=== PATIENT | female | born 1990 | race Caucasian/White ===

== ENCOUNTER 2019-01-26 09:41 | Emergency (ER) | payer BC ==
[~2019-01-26] VITALS: Ht 165.1 cm; Wt 77.6 kg
[2019-01-26 09:41] VITALS: BP 133/83
[2019-01-26] MEDS ORDERED: ADDE30CA3 PO (09:48)
[2019-01-26] MEDS ORDERED: WELLTAB40 PO (09:48)
[2019-01-26] MEDS ORDERED: AMPH1TAB2 PO (10:35)
== END 2019-01-26 10:38 | disposition home or self-care (01) ==
LOC: M ED 09:41
DX: Z76.0 Encounter for issue of repeat prescription (principal); F90.9 Attention-deficit hyperactivity disorder, unspecified type; Z79.899 Other long term (current) drug therapy; F17.210 Nicotine dependence, cigarettes, uncomplicated

== ENCOUNTER 2021-11-26 12:19 | Emergency (ER) | payer BC, SELFPAY ==
[~2021-11-26] VITALS: Ht 165.1 cm; Wt 79.2 kg
[~2021-11-26 12:19] MED LIST: ADDE30CA3 PO; AMPH1TAB2 PO; WELLTAB40 PO
[2021-11-26] MEDS ORDERED: NAPR-837 PO (14:18)
[2021-11-26 14:28] VITALS: BP 114/77
== END 2021-11-26 14:29 | disposition home or self-care (01) ==
LOC: M ED 12:19
DX: G56.31 Lesion of radial nerve, right upper limb (principal); F90.9 Attention-deficit hyperactivity disorder, unspecified type; Z79.899 Other long term (current) drug therapy; F17.200 Nicotine dependence, unspecified, uncomplicated

== ENCOUNTER → 2021-12-04 | Outpatient (CLI) | payer SELFPAY ==
[~2021-12-04] MED LIST changes: +NAPR-837 PO
== END ==
LOC: M SOG 15:11
PROVIDERS: ATTEND Orthopaedic Surgery
DX: G56.31 Lesion of radial nerve, right upper limb (principal)

== ENCOUNTER 2022-05-26 03:56 | Emergency (ER) | payer MEDICAID, OTHER, SELFPAY ==
[~2022-05-26] VITALS: Ht 165.1 cm; Wt 83.0 kg
[2022-05-26] MEDS ORDERED: diazePAM 10MG/2ML SYRINGE IM ONE (05:45)
[2022-05-26] MEDS ORDERED: diazePAM 10MG/2ML SYRINGE IV ONE (06:10)
[2022-05-26] MEDS ORDERED: KETOROLAC 30 MG/ML 1ML VIAL IV ONE ×2 (06:10→09:00)
[2022-05-26 08:15] VITALS: BP 111/74
[2022-05-26 11:16] LABS: AMPHETAMINES LEVEL URINE NEGATIVE (NEGATIVE); BARBITURATES URINE NEGATIVE (NEGATIVE); COCAINE METABOLITE URINE NEGATIVE (NEGATIVE); METHADONE URINE NEGATIVE (NEGATIVE); OPIATES URINE NEGATIVE (NEGATIVE); PHENCYCLIDINE URINE NEGATIVE (NEGATIVE)
[2022-05-26 11:18] LABS: BENZODIAZEPINES URINE POSITIVE (NEGATIVE); CANNABINOIDS URINE POSITIVE (NEGATIVE)
[2022-05-26] MEDS ORDERED: NAPR-837 PO (11:35)
[2022-05-26] MEDS ORDERED: MEDR4PAK PO (11:35)
[2022-05-26] MEDS ORDERED: LIDO5DIS41 TD (11:35)
== END 2022-05-26 12:15 | disposition home or self-care (01) ==
LOC: M ED 03:56
DX: M54.30 Sciatica, unspecified side (principal); F90.9 Attention-deficit hyperactivity disorder, unspecified type; F17.200 Nicotine dependence, unspecified, uncomplicated; Z79.899 Other long term (current) drug therapy
CPT/HCPCS: 72110; 73502; 80307; 82550; 93971; 96374; 96375; 96376; 99284; J1885; J3360